=== PATIENT | female | born 1960 | race Caucasian/White ===

== ENCOUNTER → 2020-06-01 09:44 | Outpatient (CLI) | payer OTHER, SELFPAY ==
[2020-06-01 16:00] LABS: COVID19 -Nasal RAPID Negative (Negative)
== END ==
PROVIDERS: Visit Provider Physician Assistant
DX: Z20.822 Contact with and (suspected) exposure to COVID-19 (principal)
CPT/HCPCS: 87635

== ENCOUNTER 2020-06-03 07:14 | Day surgery (SDC) | payer OTHER, SELFPAY ==
[2020-06-03] MEDS: SODIUM CHLORIDE 0.9% 1,000 ML 84 ML IV (07:00)
[2020-06-03 07:42] VITALS: BMI 32.5
[2020-06-03 07:49] VITALS: BP 159/99; PULSE 81; RESP 16; TEMP 36.2; O2SAT 95
--- NOTE | 2020-06-03 08:38 | PM.HP.1 ---
History of Present Illness History of Present Illness Date Patient Seen: 06/03/20 Chief complaint: DX COLONOSCOPY W/POSS BX Narrative: History of polyps Patient History Medical History (Updated 09/06/17 @ 10:03 by Sydney Ewing) Endometriosis (~1992) Surgical History (Updated 09/06/17 @ 10:03 by Sydney Ewing) Anesthesia Status post delivery (~1987) Status post delivery (~1988) Status post rotator cuff repair (~2005) Family & Social History Family History (Updated 04/16/15 @ 00:00 by Conversion Provider) Father Age: 87 Heart disease Stroke Social History: household members spouse Tobacco & Substance use: Smoking Status Never smoker alcohol intake current alcohol intake frequency a few times a week Substance Use Type does not use Meds Home Medications and Allergies Home Medications Medication Instructions Recorded Confirmed Type No Known Home Medications 09/07/17 06/03/20 History Allergies Allergy/AdvReac Type Severity Reaction Status Date / Time iodine Allergy Mild JOINT PAIN Verified 06/03/20 07:42 latex Allergy Mild Rash Verified 06/03/20 07:42 codeine [CODEINE] Allergy Unknown Verified 06/03/20 07:42 Exam Vital Signs (past 8 hours): - 06/03/20 07:49 Temperature 97.2 F L Pulse Rate 81 Respiratory Rate 16 Blood Pressure 159/99 H Pulse Oximetry 95 Oxygen Delivery Method Room Air Narrative Exam Narrative: Oropharynx free of lesion CTAP Cardiac exam normal Assessment & Plan Assessment & Plan narrative: History of polyps. Colonoscopy. RBAs explained Quality MIPS - Admit Advanced Care Plan / Current Medications Measures: #47 ? Advanced Care Plan Clinician documentation instruction: document at admission. [] I confirmed that the patient's Advance Care Plan is present, code status is documented, or surrogate decision maker is listed in the patient?s medical record. [SATISFIES MIPS PERFORMANCE] If Yes, Stop Here [] The patient?s Advance Care plan is not present because: (select) [MIPS PERFORMANCE EXCEPTION/EXCLUSION] [] I confirmed today that the patient does not wish or was not able to name a surrogate decision maker or provide an Advance Care Plan. [] Hospice care is currently being provided or has been provided this calendar year [] I did NOT confirm today the presence of an Advance Care Plan or surrogate decision maker documented within the patient's medical record. [DOES NOT SATISFY MIPS PERFORMANCE] #130 - Documentation of Current Medications in the Medical Record Clinician documentation instruction: use macro the first time you see a patient. [] I have utilized all available immediate resources to obtain, update, or review the patient?s current medications. [SATISFIES MIPS PERFORMANCE] If Yes, Stop Here [] The patient is not eligible for medication reconciliation; the patient is in an emergent medical situation where delaying treatment would jeopardize the patient?s health. [MIPS PERFORMANCE EXCEPTION/EXCLUSION] [] I did NOT confirm, update or review the patient's current list of medications today. [DOES NOT SATISFY MIPS PERFORMANCE] MIPS - CL Central Venous Catheter Placement Measure: #76 ? Prevention of Central Venous Catheter (CVC) ? Related Bloodstream Infection Clinician documentation instruction: use macro every time you place a central line. [] All elements of Maximal Sterile Barrier Technique, including hand hygiene, skin prep, and sterile ultrasound technique (if used) were followed. [SATISFIES MIPS PERFORMANCE] If Yes, Stop Here [] If ?No?, the medical reason all elements were NOT used for medical reason [] (ex. emergent condition). [] Maximal Sterile Barrier Technique was not followed, no reason provided [DOES NOT SATISFY MIPS PERFORMANCE] MIPS - DC Heart Failure Measures: #5 - Heart Failure (HF): Angiotensin-Converting Enzyme (ZEFERINO) Inhibitor or Angiotensin Receptor Lilia (ARB) Therapy for Left Ventricular Systolic Dysfunction (LVSD) and #8 - Heart Failure (HF): Beta-Lilia Therapy for Left Ventricular Systolic Dysfunction (LVSD) Clinician documentation instruction: use macro at every CHF discharge. [] The patient has current or prior documentation of left ventricular ejection fraction (LVEF) less than 40%, or moderate or severely depressed left ventricular systolic function. Answer both: [SATISFIES MIPS PERFORMANCE] [] The patient was prescribed or already taking an Angiotensin-Converting Enzyme (ZEFERINO) Inhibitor, or Angiotensin Receptor Lilia (ARB). [] The patient was prescribed or already taking a beta-lilia. If Yes to Both, Stop Here [] Patient not prescribed/taking: [MIPS PERFORMANCE EXCEPTION/EXCLUSION] [] ZEFERINO or ARB for medical/patient/system reason(s) including [] (ex. allergy, intolerance, contraindication) [] Beta-lilia for medical/patient/system reason(s) including [] (ex. allergy, intolerance, contraindication) [] Patient not prescribed/taking: [DOES NOT SATISFY MIPS PERFORMANCE] [] ZEFERINO or ARB, no reason given [] Beta-lilia, no reason given
--- NOTE | 2020-06-03 08:41 | PM.OP.ENDO ---
Operative Date/Time/Diagnoses Date of procedure: 06/03/20 Pre-op diagnosis: See indication and findings Procedure & Clinicians Study performed: Colonoscopy Same procedure as scheduled: Yes Indications: History of polyps Surgeon: Simi Kang Procedure Notes Procedure in detail: After informed consent was obtained patient was placed in left lateral decubitus position. The colonoscope was inserted into the rectum and slowly advanced to the cecum. Preparation was good. On slow withdrawal mucosa was carefully examined. The scope was removed. The patient tolerated procedure well. Blood loss none Complications none Sedation Total sedation time 18 minutes Versed 6 mg fentanyl 150 micro g IV titration Findings 1. Scattered diverticulosis throughout the entire colon but most prevalent on the sigmoid and left colon 2. Otherwise negative colonoscopy to cecum Since this procedure was negative for polyps and previous 3 years ago had sessile serrated adenomas we can expand the interval to 5-7 years.
[2020-06-03] MEDS: MIDAZOLAM 5 MG/5 ML VIAL IV (08:49)
[2020-06-03] MEDS: fentaNYL 250 MCG/5 ML INJ IV (08:49)
[2020-06-03 09:05] VITALS: BP 160/88; PULSE 88; RESP 13; TEMP 37; O2SAT 95
[2020-06-03 09:10] VITALS: BP 163/105; PULSE 90; RESP 12; O2SAT 95
[2020-06-03 09:20] VITALS: BP 164/89; PULSE 83; RESP 13; O2SAT 98
[2020-06-03 09:34] VITALS: BP 166/102; PULSE 81; RESP 13; O2SAT 96
--- NOTE | 2020-06-03 09:35 | SUR.PHASEI ---
Dr Kang to bedside to assess patient. Pt with some gas pains. MD aware. Also that bp elevated. No new orders received.
[2020-06-03 09:36] VITALS: BP 165/107; PULSE 88; RESP 13; TEMP 36.2; O2SAT 95
--- NOTE | 2020-06-03 09:58 | SUR.PHASEII ---
0940 Patient very anxious to leave[place] Denies pain/nausea/light headedness. States that stomach bloating is relieved by passing gas. Tolerating fluids well. 0950 Stable on feet, no questions/concerns
== END 2020-06-03 09:50 | disposition home or self-care (01) ==
PROVIDERS: PCP Physician Assistant Medical; Referring Provider Internal Medicine Gastroenterology; Visit Provider Internal Medicine Gastroenterology
PROC: 0DJD8ZZ Inspection of Lower Intestinal Tract, Via Natural or Artificial Opening Endoscopic (ICD-10-PCS; CPT 45378; principal; 2020-06-03 08:30)
DX: Z12.11 Encounter for screening for malignant neoplasm of colon (principal); Z86.010 Personal history of colon polyps; K57.30 Diverticulosis of large intestine without perforation or abscess without bleeding
CPT/HCPCS: 45378; J2250; J3010

== ENCOUNTER → 2023-01-11 07:39 | Outpatient (CLI) | payer OTHER, SELFPAY ==
--- NOTE | 2023-01-11 | DI.MRI.S_ITS ---
PROCEDURE: MR CERVICAL SPINE WO CON INDICATIONS: Radiculopathy, cervical region TECHNIQUE: Noncontrast sagittal T1 spin echo and T2 fast spin echo, sagittal STIR, foraminal oblique sagittal T2 fast spin echo, and axial gradient echo or T2 fast spin echo through the cervical spine. COMPARISON: None. FINDINGS: Image quality: Excellent. Alignment and Curvature: Straightening of the normal cervical lordosis. Minimal anterolisthesis of C5 on C6. Bone Marrow: Marrow demonstrates normal overall signal. Spinal Cord: Visualized spinal cord has normal size and signal. No cerebellar tonsillar herniation. Paraspinous Soft Tissues: No paravertebral masses. Prevertebral soft tissues are normal in thickness. Right thyroid nodule measuring 10 millimeters. C2-C3: Disc desiccation. No central canal stenosis. Facet and uncovertebral arthropathy. Mild right and moderate neural foraminal stenosis. C3-C4: Disc desiccation and height loss. Posterior disc osteophyte complex abutting the ventral cord. Mild central canal stenosis. Facet and uncovertebral arthropathy. Severe right and moderate left neural foraminal stenosis. C4-C5: Disc desiccation. Mild posterior disc osteophyte complex. No central canal stenosis. Facet and uncovertebral arthropathy. No neural foraminal stenosis. C5-C6: Disc desiccation and height loss. Posterior disc osteophyte complex abutting the ventral cord. Mild central canal stenosis. Facet and uncovertebral arthropathy. Moderate bilateral neural foraminal stenosis. C6-C7: Disc desiccation. Mild posterior disc osteophyte complex. No central canal stenosis. Facet and uncovertebral arthropathy. No neural foraminal stenosis. C7-T1: No central canal or neural foraminal stenosis. IMPRESSION: 1. Multilevel degenerative changes of the cervical spine as described above. 2. Mild multilevel central canal stenosis. 3. Severe right neural foraminal stenosis at C3-C4. Multilevel mild and moderate neural foraminal stenosis as described above. 4. Right thyroid nodule measuring 10 millimeters, consider thyroid ultrasound for further evaluation. Dictated by: Heath Puri M.D. on 01/11/2023 at 9:57 Approved by: Heath Puri M.D. on 01/11/2023 at 10:01
== END ==
PROVIDERS: PCP Physician Assistant Medical; Referring Provider Physician Assistant Medical; Visit Provider Physician Assistant Medical
DX: M47.22 Other spondylosis with radiculopathy, cervical region (principal); M48.02 Spinal stenosis, cervical region; E04.1 Nontoxic single thyroid nodule
CPT/HCPCS: 72141

== ENCOUNTER → 2023-01-17 13:15 | Outpatient (CLI) | payer OTHER, SELFPAY ==
--- NOTE | 2023-01-17 | DI.US.S_ITS ---
PROCEDURE: US THYROID INDICATIONS: Nontoxic single thyroid nodule TECHNIQUE: Real-time scanning was performed of the thyroid gland, with image documentation. COMPARISON: None. FINDINGS: Right: Thyroid lobe measures 4.0 x 1.2 x 1.3 cm, and is homogeneous in echotexture. Left: Thyroid lobe measures 4.0 x 1.2 x 0.9 cm, and is homogenous in echotexture. Isthmus: 2.2 mm thick. Nodule number: 1 Location: Lateral right upper pole Size: 1.1 x 0.8 x 0.8 cm. Composition: Spongiform Echogenicity: Hypoechoic Shape: wider than tall. Margins: Smooth Echogenic foci: Non Total points: 2 ACR TI-RADS category: Not suspicious Nodule number: 2 Location: Medial right upper pole Size: 0.6 x 0.4 x 0.4 cm. Composition: Solid Echogenicity: Hypoechoic Shape: wider than tall. Margins: Smooth Echogenic foci: Non Total points: 4 ACR TI-RADS category: Moderately suspicious IMPRESSION: Patient has 2 small thyroid nodules. Both of these nodules do not satisfy criteria for tissue diagnosis. They also do not satisfy criteria for suggested future follow-up. ACR TI-RADS definitions and recommendations: TI-RADS 1 (benign): 0 points. FNA not needed. TI-RADS 2 (not suspicious): 2 points. FNA not needed. TI-RADS 3 (mildly suspicious): 3 points. * FNA if 2.5 cm or larger, follow up if 1.5 cm or larger (at 1, 3, and 5 years). TI-RADS 4 (moderately suspicious): 4-6 points. * FNA if 1.5 cm or larger, follow up if 1 cm or larger (at 1, 2, 3, and 5 years). TI-RADS 5 (highly suspicious): 7 points or more. * FNA if 1 cm or larger, follow up if 0.5 cm or larger (every year for 5 years). Dictated by: Donovan Nance M.D. on 01/17/2023 at 15:42 Approved by: Donovan Nance M.D. on 01/17/2023 at 15:46
== END ==
PROVIDERS: PCP Physician Assistant Medical; Referring Provider Physician Assistant Medical; Visit Provider Physician Assistant Medical
DX: E04.2 Nontoxic multinodular goiter (principal)
CPT/HCPCS: 76536

== ENCOUNTER → 2023-05-18 07:50 | Outpatient (CLI) | payer OTHER, SELFPAY ==
--- NOTE | 2023-05-18 07:52 | DI.CT.S_ITS ---
PROCEDURE: CT HEAD/BRAIN WO CON INDICATIONS: Headache, unspecified TECHNIQUE: Noncontrast 4.5 mm thick angled axial sections acquired from the foramen magnum to the vertex, with coronal and sagittal reformats. For radiation dose reduction, the following was used: automated exposure control, adjustment of mA and/or kV according to patient size. COMPARISON: None. FINDINGS: Image quality: Diagnostic. CSF spaces: Basal cisterns are patent. No extra-axial fluid collections. The ventricles are symmetric in size and shape. Brain: No intracranial bleeds or masses. There is mild cerebral volume loss for age, with resultant ventricular and sulcal prominence. There are mild periventricular and deep white matter chronic small vessel ischemic changes. There is intracranial internal carotid artery atherosclerosis. Skull and face: Calvarium and visualized facial bones appear intact, without suspicious lesions. Sinuses: Mild mucosal thickening of the paranasal sinuses. The mastoids are clear. IMPRESSION: No findings to explain patient's symptoms. No acute intracranial pathology. Dictated by: Heath Puri M.D. on 05/18/2023 at 9:12 Approved by: Heath Puri M.D. on 05/18/2023 at 9:14
== END ==
LOC: CT 07:50
PROVIDERS: PCP Physician Assistant Medical; Referring Provider Physician Assistant Medical; Visit Provider Physician Assistant Medical
DX: R51.9 Headache, unspecified (principal); R42 Dizziness and giddiness
CPT/HCPCS: 70450

== ENCOUNTER 2023-08-23 09:55 | Outpatient (CLI) | payer OTHER, SELFPAY ==
[2023-08-23] VITALS (8 sets, daily range): BP systolic 126–147; BP diastolic 71–97; PULSE 68–76; RESP 13–20; TEMP 36.4; O2SAT 96–100
--- NOTE | 2023-08-23 10:30 | DI.RAD.S_ITS ---
PROCEDURE: PAIN C/T FACET INJ/BLK 1ST L INDICATIONS: Pain COMPARISON: None. FINDINGS: Fluoroscopic spot filming was performed to verify placement of spinal needles at the C3, C4 level(s), as labeled on the films. Appropriate location(s) of the needle tip(s) was confirmed by injection of iodinated contrast. IMPRESSION: Intra procedural examination demonstrating appropriate positions of the needles. Dictated by: Heath Puri M.D. on 08/23/2023 at 14:05 Approved by: Heath Puri M.D. on 08/23/2023 at 14:06
[2023-08-23] MEDS: MIDAZOLAM 2 MG/2 ML VIAL 1 MG IV (10:55)
[2023-08-23] MEDS: BUPIVACAINE 0.5% (PF) 10 ML VIAL 5 ML INJ (10:56)
[2023-08-23] MEDS: iopamidoL 15 ML VIAL 3 ML INJ (10:57)
--- NOTE | 2023-08-23 12:12 | P.PCN_ITS ---
Date/Time/Diagnoses Date of procedure: 08/23/23 Time of procedure: 10:30 Procedure Notes Physician: Slim Deleon Total Fluoroscopy time (seconds): 29 Total sedation minutes: 7 Procedure in detail & Post-procedure care: Right 3rd occipital nerve, C3, C4 Cervical Medial Branch Blocks Indications: Sigrid is presenting for treatment of cervical spondylosis with cervical pain. Preoperative diagnosis: Cervical spondylosis Postoperative diagnosis: Same Pre-procedure History: Patient demonstrates today moderate to severe non- radicular neck pain without neurologic deficit aggravated by hyperextension yes Neck pain greater than arm pain? yes Patient today has tenderness over the suspected joint(s) yes History of post-traumatic injury? no Hypertrophic arthropathy yes Neck pain associated with suspected motion segment instability, hypermobility or pseudoarthrosis no Focused Examination: Ax3 Mood and affect are normal Vital Signs: VSS ASA: 2 Consent: Following review of allergies and potential side effects/complications, including, but not necessarily limited to, infection, allergic reaction, local tissue breakdown, stroke, temporary or permanent nerve injury, paralysis, and possible , the patient indicated that they understood and agreed to proceed .? An informed consent document was signed by the patient, witnessed by a nurse and placed in the patient's chart.? Additionally, other treatment options including medications and physical therapy were reviewed with the patient. All questions were answered. Site was then marked. Anesthesia: After review of previous anesthetic history and IV conscious sedation, the patient was deemed safe to proceed with today's procedure with IV conscious sedation. IV sedation was accomplished with midazolam 1 mg administered by the RN after order by Dr. Deleon. Sedation was titrated to patient comfort during the course of the procedure. Patient remained responsive to all verbal commands. Position: Prone Monitoring: NIBP, Pulse oximetry, 3 lead EKG Needle used: 22G 3.5 inch spinal needle Contrast: Isovue 300M Injectate: 0.5% bupivacaine 0.5 mL per site Procedure: The patient was brought into the procedure room and positioned into the prone position. Skin was prepped with a Chloraprep solution, allowed to air dry, and then draped in sterile fashion.? The right 3rd occipital nerve, C3, C4 regions were visually identified with fluoroscopy. Lidocaine 1% was used to anesthetize the skin over each target destination with a 25ga needle. A 22 ga, 3.5 inch spinal needle was advanced to the location of the medial branch at the waist of the articular pillar using intermittent fluoroscopy in the AP view. Isovue 300M contrast 0.2ml was injected at each level outlining the borders for each level in the AP/lateral views and confirmed in the foraminal view. There was no evidence of vascular or intrathecal uptake. The above injectate was slowly injected at each target destination. At the end of the procedure the needles were withdrawn and Band-Aids were applied for a dressing. Post Procedure: Patient was taken to the recovery and monitored. The patient was provided a Pain Log to continue to record the patient's response to the target- specific procedure prior to the patient's follow-up visit with the referring physician. Patient was stable upon discharge. Detailed post procedure instructions were provided. Patient was asked to call in the event of worsening pain, fever, weakness, numbness or bladder or bowel incontinence. Based on the medial branches blocked today, if the patient meets insurance criteria for radiofrequency, the treatment should result in the denervation of the 3rd occipital nerve, C3-4 facet joint nerves. We would expect to denervate a total of 2 facets during the radiofrequency ablation. Complications: None
== END 2023-08-23 11:28 | disposition home or self-care (01) ==
LOC: RAD 09:55
PROVIDERS: PCP Physician Assistant; Referring Provider Anesthesiology; Visit Provider Anesthesiology
DX: M47.812 Spondylosis without myelopathy or radiculopathy, cervical region (principal)
CPT/HCPCS: 64490; 64491; J2250